=== PATIENT | female | born 1980 | race Caucasian/White ===

== ENCOUNTER 2022-01-10 13:21 | Outpatient (REF) | payer OTHER, SELFPAY ==
--- NOTE | 2022-01-16 09:03 | MHC.AU.HFU ---
Hearing Instrument Follow-Up- Binaural Date of Visit: 01/10/22 Right Ear: Phonak Virto B50-312, #[id number] Repair Warranty: 08/12/2021 Loss and Damage Warranty: 08/12/2021 Battery Size: 312 Dispensed By: [facility] Date of Fittin07/22/2018 Left Ear: Phonak Virto B50-312, #[id number] Repair Warranty: 08/12/2021 Loss and Damage Warranty: 08/12/2021 Battery Size: 312 Dispensed By: [facility] Date of Fittin07/22/2018 Follow-Up Summary: Patient's right hearing aid was recently lost. Patient has moderate to severe hearing loss and is dependent on her hearing aids for communication. Per Erwin, her model of hearing aid is no longer being sold; therefore, we would need to get a different model to replace the lost instrument. Hearing aids are designed to work together. They communicate with each other to determine how to modify the sound. If there is a different model on each ear, they cannot communicate together and most of the beneficial features will not work. I am recommending a new pair of hearing aids so she will be able to access the full range of beneficial features in the instruments. Recommendations: A prior authorization will be sent to the patient's insurance, requesting a new pair of hearing aids. If approved, a pair of Phonak Virto P70-312 will be ordered. Diagnosis Code(s): Primary Diagnosis: H90.3 Bilateral Sensorineural Hearing Loss Signature: Provider: Prabhjot Carter, [facility]
== END 2022-01-10 13:22 | disposition home or self-care (01) ==
LOC: HO.HAP 13:21
PROVIDERS: Visit Provider Pediatrics
DX: Z46.1 Encounter for fitting and adjustment of hearing aid (principal); H90.3 Sensorineural hearing loss, bilateral
CPT/HCPCS: 92592

== ENCOUNTER 2022-02-06 09:43 | Outpatient (REF) | payer OTHER, SELFPAY ==
--- NOTE | 2022-02-06 11:01 | MHC.AU.HFA ---
Hearing Instrument Fitting- Adult- Binaural Date of Visit: 02/06/22 Hearing Instruments Dispensed: Right Ear: Serial Number: Phonak Virto P50-312 half shell, SN#[id number], pink Repair Warranty: 04/24/2025 Loss and Damage Warranty: 04/24/2025 Battery Size: 312 Force Variation Equipment Tender: Power Type of Wax Guard: Cerustop Left Ear: Serial Number: Phonak Virto P50-312 half shell, SN# [id number], pink Repair Warranty: 04/24/2025 Loss and Damage Warranty: 04/24/2025 Battery Size: 312 Force Variation Equipment Tender: Power Type of Wax Guard: Cerustop Summary of Fitting: The patient was seen today for a hearing aid fitting. She is a previous phonak virto hearing aid user (she still has an older virto aid for the left ear). Hearing aids were programmed to 100% target gain. Speech mapping was run and the right hearing aid gain was decreased in the mid-frequencies by 3 steps to better meet targets. Hearing aids are meeting targets revealing they are functioning. The patient reported good volume and a comfortable fit. I paired the hearing aids to her iPhone and Mevio jessie. Reviewed connectivity features and showed her how to adjust the volume independently from each other as she requested. Sometimes at home the patient prefers to wear just the right hearing aid. Reviewed hearing aid care and cleaning. Reviewed the warranty info and provided a signed copy of the hearing aid delivery receipt to the patient. 24 batteries dispensed. Billed hearing aid fitting to [facility], [place] approved auth# [id number]. The patient was recommended to return in 1 year for annual testing/check, sooner if concerns arise. Recommendations: Recommendations: Hearing instrument care and maintenance were discussed and practiced. The instrument(s) were paired to the patient's smartphone. Patient does not feel follow-up is necessary at this time. Please call our clinic with any questions or concerns. Diagnosis Code(s): Primary Diagnosis: H90.3 Bilateral Sensorineural Hearing Loss Signature: Provider: Chiquis White, [facility]
== END 2022-02-06 09:44 | disposition home or self-care (01) ==
LOC: HO.HAP 09:43
PROVIDERS: Visit Provider Pediatrics
DX: Z46.1 Encounter for fitting and adjustment of hearing aid (principal); H90.3 Sensorineural hearing loss, bilateral
CPT/HCPCS: V5011; V5020; V5160; V5260; V5266

== ENCOUNTER 2022-04-26 08:16 | Outpatient (REF) | payer OTHER, SELFPAY | END 2022-04-26 08:17 | disposition home or self-care (01) | LOC: HO.HAP 08:16 | PROVIDERS: Visit Provider Pediatrics | DX: Z46.1 Encounter for fitting and adjustment of hearing aid (principal); H90.3 Sensorineural hearing loss, bilateral | CPT/HCPCS: V5266 ==

== ENCOUNTER 2022-07-08 09:22 | Outpatient (REF) | payer OTHER, SELFPAY | END 2022-07-08 09:23 | disposition home or self-care (01) | LOC: HO.HAP 09:22 | PROVIDERS: Visit Provider Internal Medicine | DX: Z13.89 Encounter for screening for other disorder (principal) ==

== ENCOUNTER 2022-07-08 09:25 | Outpatient (REF) | payer OTHER, SELFPAY | END 2022-07-08 09:26 | disposition home or self-care (01) | LOC: HO.HAP 09:25 | PROVIDERS: Visit Provider Internal Medicine | DX: Z46.1 Encounter for fitting and adjustment of hearing aid (principal); H90.3 Sensorineural hearing loss, bilateral | CPT/HCPCS: V5266 ==

== ENCOUNTER 2022-08-07 11:56 | Outpatient (REF) | payer OTHER, SELFPAY ==
--- NOTE | 2022-08-07 12:50 | MHC.AU.HFU ---
Hearing Instrument Follow-Up- Binaural Date of Visit: 08/07/22 Right Ear: Phonak Virto P50-312 half shell, SN#[id number], pink Repair Warranty: 04/24/2025 Loss and Damage Warranty: 04/24/2025 Battery Size: 312 Payroll Processor: Power Type of Wax Guard: Cerustop Dispensed By: [facility] Date of Fittin07/22/2018 Left Ear: Phonak Virto P50-312 half shell, SN# [id number], pink Repair Warranty: 04/24/2025 Loss and Damage Warranty: 04/24/2025 Battery Size: 312 Payroll Processor: Power Type of Wax Guard: Cerustop Dispensed By: [facility] Date of Fittin07/22/2018 Follow-Up Summary: Kady is here to tile picker her right hearing aid from repair. Phonak replaced the customer account representative and volume control button. I programmed right and left hearing aids together to user settings. Kady was getting some feedback from the right hearing aid so I ran the feedback manager employment which revealed quite a bit of feedback. Otoscopy reveals a clear ear canal. I asked the patient to remove her mask and then re-ran the feedback manager employment, this improved. I counseled the patient on the impact of the mask on ear shape, therefore causing feedback. The patient indicated understanding. Kady got a new iPhone and would like me to re-pair her hearing aids to her iPhone. I re-paired the hearing aids to her iPhone and Mojostreet jessie. Reviewed jessie features per patient request. Kady inquired about a dry aid jar. We no longer keep them in stock so she will purchase one herself. No other questions at this time. Additional follow-up as needed. Diagnosis Code(s): Primary Diagnosis: H90.3 Bilateral Sensorineural Hearing Loss Signature: Provider: Chiquis White, [facility]
== END 2022-08-07 11:57 | disposition home or self-care (01) ==
LOC: HO.HAP 11:56
PROVIDERS: Visit Provider Otolaryngology
DX: Z13.89 Encounter for screening for other disorder (principal)

== ENCOUNTER 2022-09-09 09:31 | Outpatient (REF) | payer OTHER, SELFPAY | END 2022-09-09 09:32 | disposition home or self-care (01) | LOC: HO.HAP 09:31 | PROVIDERS: Visit Provider Nurse Practitioner Family | DX: Z46.1 Encounter for fitting and adjustment of hearing aid (principal); H90.3 Sensorineural hearing loss, bilateral | CPT/HCPCS: V5266 ==

== ENCOUNTER 2023-02-10 11:10 | Outpatient (REF) | payer OTHER, SELFPAY | END 2023-02-10 11:11 | disposition home or self-care (01) | LOC: HO.HAP 11:10 | PROVIDERS: Visit Provider Internal Medicine | DX: Z46.1 Encounter for fitting and adjustment of hearing aid (principal); H90.3 Sensorineural hearing loss, bilateral | CPT/HCPCS: V5266 ==

== ENCOUNTER 2023-05-20 09:48 | Outpatient (REF) | payer OTHER, SELFPAY | END 2023-05-20 09:49 | disposition home or self-care (01) | LOC: HO.HAP 09:48 | PROVIDERS: Visit Provider Nurse Practitioner Family | DX: Z46.1 Encounter for fitting and adjustment of hearing aid (principal); H90.3 Sensorineural hearing loss, bilateral | CPT/HCPCS: V5266 ==

== ENCOUNTER 2023-06-24 15:02 | Outpatient (REF) | payer OTHER, SELFPAY | END 2023-06-24 15:03 | disposition home or self-care (01) | LOC: HO.HAP 15:02 | PROVIDERS: Visit Provider Nurse Practitioner Family | DX: Z13.89 Encounter for screening for other disorder (principal) ==

== ENCOUNTER 2023-07-04 12:52 | Outpatient (REF) | payer OTHER, SELFPAY | END 2023-07-04 12:53 | disposition home or self-care (01) | LOC: HO.HAP 12:52 | PROVIDERS: Visit Provider Otolaryngology | DX: Z46.1 Encounter for fitting and adjustment of hearing aid (principal); H90.3 Sensorineural hearing loss, bilateral | CPT/HCPCS: 92592 ==

== ENCOUNTER 2023-10-16 11:00 | Outpatient (REF) | payer OTHER, SELFPAY ==
--- NOTE | 2023-10-16 14:20 | MHC.AU.HA3 ---
Hearing Instrument Follow-Up Date of Visit: 10/16/23 Right Ear: Make, Model, Color, Serial Number: Phonak Virto P50-312 half shell, [id number], pink Kettle Chipper Repair Warranty: 04/24/2025 Kettle Chipper Loss and Damage Warranty: 04/24/2025 [facility] Service Plan: 02/06/2023 Battery Size: 312 Tong Carrier/Slim Tube: Power Earmold/Dome/CShell/SlimTip:NA Type of Wax Guard: Cerustop Dispensed By: [facility] Date of Fittin02/06/2022 Left Ear: Make, Model, Color, Serial Number: Phonak Virto P50-312 half shell, SN# [id number], pink Kettle Chipper Repair Warranty: 04/24/2025 Kettle Chipper Loss and Damage Warranty: 04/24/2025 [facility] Service Plan: 02/06/2023 Battery Size: 312 Tong Carrier/Slim Tube: Power Earmold/Dome/CShell/SlimTip: NA Type of Wax Guard: Cerustop Dispensed By: [facility] Date of Fittin02/06/2022 Follow-Up Summary: Right aid dropped off not turning on . Cleaned, replaced wax guard. No start up jingle, no amplification. Sending to [employer]. Recommendations: Recommendations: Patient will be contacted when materials have arrived. Diagnosis Code(s): Primary Diagnosis: H90.3 Bilateral Sensorineural Hearing Loss Signature: Provider: Prabhjot Kaufman, [facility]
== END 2023-10-16 11:01 | disposition home or self-care (01) ==
LOC: HO.HAP 11:00
DX: Z13.89 Encounter for screening for other disorder (principal)

== ENCOUNTER 2023-10-30 13:49 | Outpatient (REF) | payer OTHER, SELFPAY ==
--- NOTE | 2023-10-30 14:13 | MHC.AU.HA3 ---
Hearing Instrument Follow-Up- Binaural Date of Visit: 10/30/23 Right Ear: Make, Model, Color, Serial Number: Erwin Ascencioo P50-312 HS [id number] Color: [place] Senior Account Manager Repair Warranty: 04/24/2025 Senior Account Manager Loss and Damage Warranty: 04/24/2025 [facility] Service Plan: 02/06/2023 Battery Size: 312 Regional Sales Consultant/Slim Tube: Power Earmold/Dome/CShell/SlimTip:NA Type of Wax Guard: Cerustop Dispensed By: [facility] Date of Fittin02/06/2022 Left Ear: Make, Model, Color, Serial Number: Erwin Ascencioo P50-312 HS SN: [id number] Color: [place] Senior Account Manager Repair Warranty: 04/24/2025 Senior Account Manager Loss and Damage Warranty: 04/24/2025 [facility] Service Plan: 02/06/2023 Battery Size: 312 Regional Sales Consultant/Slim Tube: Power Earmold/Dome/CShell/SlimTip: NA Type of Wax Guard: Cerustop Dispensed By: [facility] Date of Fittin02/06/2022 Follow-Up Summary: Picked up right repaired hearing aid. Reconnected to left hearing aid via [employer] software. Reran feedback analyzer on right ear. Left hearing aid missing VC cover. Kady reported she rarely uses VC wheel and primarily adjusts volume through jessie. She opted to continue use as is for now. Advised to drop off left hearing aid if she wants VC cover replaced in future. Recommendations: Hearing instrument follow-up or maintenance as needed. Please contact our clinic with any questions or concerns. Diagnosis Code(s): Primary Diagnosis: H90.3 Bilateral Sensorineural Hearing Loss Signature: Provider: Prabhjot Arellano, [facility]
== END 2023-10-30 13:50 | disposition home or self-care (01) ==
LOC: HO.HAP 13:49
PROVIDERS: Visit Provider Otolaryngology
DX: Z46.1 Encounter for fitting and adjustment of hearing aid (principal); H90.3 Sensorineural hearing loss, bilateral
CPT/HCPCS: 92592; V5266